=== PATIENT | female | born 1990 | race Caucasian/White ===

== ENCOUNTER 2017-10-28 18:15 | Emergency (ER) | payer BC ==
[~2017-10-28] VITALS: Ht 165.1 cm; Wt 90.9 kg
[2017-10-28] MEDS ORDERED: TRAM50TA4 PO (18:23)
[2017-10-28] MEDS ORDERED: DiphenhydrAMINE HCL 25 MG CAPSULE PO ONE (19:00)
[2017-10-28] MEDS ORDERED: PredniSONE 20 MG TABLET PO ONE (19:00)
[2017-10-28 19:47] VITALS: BP 117/67
== END 2017-10-28 19:51 | disposition home or self-care (01) ==
LOC: EMS 18:17
DX: S60.562A Insect bite (nonvenomous) of left hand, initial encounter (principal); L08.9 Local infection of the skin and subcutaneous tissue, unspecified; W57.XXXA Bitten or stung by nonvenomous insect and other nonvenomous arthropods, initial encounter; Y93.89 Activity, other specified; Y92.89 Other specified places as the place of occurrence of the external cause; Y99.8 Other external cause status
CPT/HCPCS: 99283; J7512